=== PATIENT | female | born 1945 ===

== ENCOUNTER 2018-07-25 10:57 | Emergency (ER) | payer MEDICARE ==
[2018-07-25 11:17] VITALS: BP 160/89; PULSE 75; RESP 16; TEMP 98.1; O2SAT 99
[2018-07-25] MEDS ORDERED: Naproxen 500 MG TAB PO STA (12:33)
--- NOTE | 2018-07-25 12:33 | ED PDOC ---
HPI: General Adult Time Seen by Provider: 07/25/18 12:21 Chief Complaint (Nursing): Trauma Chief Complaint (Provider): b/l knee and left ar m pain after fall yesterday History Per: Patient History/Exam Limitations: no limitations Onset/Duration Of Symptoms: Hrs (last night) Current Symptoms Are (Timing): Still Present Additional Complaint(s): 72 year old female presents to the ED complaining of bilateral knee pain since last night. Patient states she was walking and tripped on uneven pavement at the [employer]. She reports she tried to break the fall with her hands and is complaining of hand pain and left arm pain. Denies taking medications for pain, and numbness or tingling. She also denies chest pain, dizziness, or head injury before and after the fall. PMD: [facility] Past Medical History Reviewed: Historical Data, Nursing Documentation, Vital Signs Vital Signs: Last Vital Signs Temp 98.1 F 07/25/18 11:14 Pulse 75 07/25/18 11:14 Resp 16 07/25/18 11:14 BP 160/89 H 07/25/18 11:14 Pulse Ox 99 07/25/18 11:14 - Medical History PMH: Fractures (rt foot), Hypercholesterolemia Denies: Chronic Kidney Disease - Surgical History Surgical History: Cholecystectomy - Family History Family History: States: Unknown Family Hx - Immunization History Hx Tetanus Toxoid Vaccination: No Hx Influenza Vaccination: Yes (2015) Hx Pneumococcal Vaccination: Yes (2011) - Home Medications Home Medications: Ambulatory Orders Medication Instructions Recorded metFORMIN [glucOPHAGE] 500 mg PO BID #60 tab 07/27/17 - Allergies Allergies/Adverse Reactions: Allergies Allergy/AdvReac Type Severity Reaction Status Date / Time aspirin Allergy RASH Verified 07/22/17 15:04 Review of Systems ROS Statement: Except As Marked, All Systems Reviewed And Found Negative Cardiovascular: Negative for: Chest Pain Musculoskeletal: Positive for: Other (bilateral knee pain, hand pain, left arm pain; no head injury) Neurological: Negative for: Numbness (or tingling), Dizziness Physical Exam - Reviewed Nursing Documentation Reviewed: Yes Vital Signs Reviewed: Yes - Physical Exam Appears: Positive for: Non-toxic, No Acute Distress Head Exam: Positive for: ATRAUMATIC, NORMOCEPHALIC Skin: Positive for: Normal Color, Warm, Dry Eye Exam: Positive for: Normal appearance Neck: Positive for: Normal Cardiovascular/Chest: Positive for: Regular Rate, Rhythm. Negative for: Murmur Respiratory: Positive for: Normal Breath Sounds. Negative for: Wheezing, Respiratory Distress Extremity: Positive for: Normal ROM (of upper and lower extremities), Tenderness (Generalized tenderness to bilateral knees; no tenderness to the hands, wrist, elbow, shoulder, or clavicle ), Other (Ecchymosis to bilateral knees; abrasion to the right palm of the right hand). Negative for: Deformity (to upper and lower extremities), Swelling (to the upper and lower extremities) Neurologic/Psych: Positive for: Alert, Oriented. Negative for: Motor/Sensory Deficits - ECG O2 Sat by Pulse Oximetry: 99 (RA) Pulse Ox Interpretation: Normal Medical Decision Making Medical Decision Making: Initial Impression: Bilateral knee pain Initial Plan: --X-ray bilateral knee --Tylenol 650mg PO Bilateral knee XR without acute fracture or dislocation. Scribe Attestation: Documented by Dallas Christensen acting as a scribe for Genevieve HAWK. Provider Scribe Attestation: All medical record entries made by the Scribe were at my direction and personally dictated by me. I have reviewed the chart and agree that the record accurately reflects my personal performance of the history, physical exam, medical decision making, and the department course for this patient. I have also personally directed, reviewed, and agree with the discharge instructions and disposition. Disposition - Clinical Impression Clinical Impression: Knee pain, Arm pain, Fall - Patient ED Disposition Is Patient to be Admitted: No Counseled Patient/Family Regarding: Diagnosis, Need For Followup - Disposition Referrals: [facility] [Outside] Disposition: Routine/Home Disposition Time: 13:20 Condition: GOOD Instructions: Knee Pain (DC) Forms: [employer] (Romanian) Print Language: TUVALUAN
--- NOTE | 2018-07-25 13:59 | RAD ---
Date of service: 07/25/2018 PROCEDURE: Bilateral Knee Radiographs. HISTORY: pain, fall COMPARISON: None. FINDINGS: BONES: Right Knee: Normal. No fracture. Left Knee: Normal. No fracture. JOINTS: Right Knee: Normal. No osteoarthritis. Left knee: Normal. No osteoarthritis. SOFT TISSUES: Right Knee: Normal. Left Knee: Normal. JOINT EFFUSION: Right Knee: None. Left Knee: None. OTHER FINDINGS: None. IMPRESSION: No acute findings related to/accounting for the clinical presentation.
== END 2018-07-25 13:55 | disposition home or self-care (01) ==
LOC: H.ER 10:57
DX: M79.602 Pain in left arm (principal); M25.561 Pain in right knee; M25.562 Pain in left knee; W19.XXXA Unspecified fall, initial encounter; Y93.01 Activity, walking, marching and hiking; Y92.480 Sidewalk as the place of occurrence of the external cause; E78.00 Pure hypercholesterolemia, unspecified; Z79.84 Long term (current) use of oral hypoglycemic drugs